=== PATIENT | female | born 1980 | race Caucasian/White ===

== ENCOUNTER → 2020-10-26 | Outpatient (CLI) | payer OTHER ==
[2013-09-29 11:00] VITALS: BP 129/84
[~2020-10-26] MED LIST: BUPR150T15 PO; CETI10CA PO; FERR325C PO; HYDR-2761 PO; NORE-108 PO; PHEN37.599 PO; POLY17PO29 PO; [UNRECOGNIZED DRUG - CODE] PO
[2020-10-26 12:28] LABS: BASO % 0 % (0-3); EOS # 0.4 x10^3/uL (0.0-0.7); EOS % 5 % (0-3); HEMATOCRIT 36.5 % (36.0-47.0); HEMOGLOBIN 12.4 g/dL (12.0-15.5); LYMPH # 2.1 x10^3/uL (1.0-4.8); LYMPH % 27 % (24-48); MEAN CORPUSCULAR HEMOGLOBIN 31 pg (25-35); MEAN CORPUSCULAR HGB CONC 34 g/dL (31-37); MEAN CORPUSCULAR VOLUME 91 fL (79-100); MONO # 0.5 x10^3/uL (0.0-1.1); MONO % 6 % (0-9); NEUT # 4.8 x10^3/uL (1.8-7.7); NEUT % 62 % (31-73); PLATELET COUNT 264 x10^3/uL (140-400); RED BLOOD COUNT 4.04 x10^6/uL (3.50-5.40); RED CELL DISTRIBUTION WIDTH 13.6 % (11.5-14.5); WHITE BLOOD COUNT 7.7 x10^3/uL (4.0-11.0)
== END ==
LOC: SURGPAT 11:50
PROVIDERS: ATTEND Obstetrics & Gynecology
DX: Z01.818 Encounter for other preprocedural examination (principal); N83.291 Other ovarian cyst, right side
CPT/HCPCS: 36415; 85025

== ENCOUNTER 2020-10-31 06:04 | Day surgery (SDC) | payer OTHER ==
[2020-10-26 12:17] VITALS: BP 134/84
[~2020-10-31] VITALS: Ht 157.5 cm; Wt 70.6 kg
[~2020-10-31 06:04] MED LIST changes: -BUPR150T15 PO; -HYDR-2761 PO; +HYDROmorphone 2 MG/ML VIAL IVP PRN; +IV RINGERS,LACTATED 1000ML 1,000 ML IV SCH; +MORPHINE SULFATE 2 MG/ML VIAL. IVP PRN; +PROCHLORPERAZINE 10 MG/2 ML VIAL. IVP PRN; +fentaNYL PF VIAL 100 MCG/2 ML VIAL IVP PRN
[2020-10-31 06:27] VITALS: BP 136/88
[2020-10-31] MEDS ORDERED: BUPR150T15 PO (06:32)
[2020-10-31] MEDS ORDERED: LIDOCAINE 2% PF 5 ML VIAL. ONE (06:51)
[2020-10-31] MEDS ORDERED: fentaNYL PF VIAL 100 MCG/2 ML VIAL ONE ×3 (06:51→09:43)
[2020-10-31] MEDS ORDERED: SUCCINYLCHOLINE 200 MG/10 ML VIAL. ONE (06:51)
[2020-10-31] MEDS ORDERED: PROPOFOL 10 MG/ML (20ML) VIAL. IV ONE (06:51)
[2020-10-31] MEDS ORDERED: ROCURONIUM 50 MG/5 ML VIAL. ONE (06:52)
[2020-10-31] MEDS ORDERED: BUPIVACAINE-EPI 0.25% 30 ML VIAL KIT. ONE (06:54)
[2020-10-31] MEDS ORDERED: METHYLENE BLUE 0.5% 10ml AMPULE. ONE (06:55)
[2020-10-31] MEDS ORDERED: SEVOFLURANE 31 TO 60 MINUTES. IH ONE (07:38)
[2020-10-31] MEDS ORDERED: DEXAMETHASONE SOD PHOS 20 MG/5 ML VIAL. ONE (07:38)
[2020-10-31] MEDS ORDERED: ONDANSETRON PF 4 MG/2 ML VIAL. ONE (07:38)
[2020-10-31] MEDS ORDERED: NEOSTIGMINE METHYLSULFATE 5 MG/5 ML SYRINGE. ONE (07:54)
[2020-10-31] MEDS ORDERED: GLYCOPYRROLATE 1 MG/5 ML VIAL. ONE (07:54)
--- NOTE | 2020-10-31 09:19 | PDOC ---
BRIEF OPERATIVE NOTE Date: Oct 31, 2020 Pre-Op Diagnosis 13+cm right ovarian cyst Post-Op Diagnosis bilateral ovarian cysts Procedure Performed operative laparoscopy with RSO, left ovarian cystectomy Surgeon Dr. Sue Leung Explosive Ordnance Handler PATO Leslie Anesthesiologist Dr. Teague Anesthesia Type: General Blood Loss 10cc IV Fluid 400cc Urine Output 150cc straight cath prior to procedure Specimens Obtained left ovarian cyst wall, Right tube and ovary Findings small 1-2 cm left ovarian cyst, normal uterus, normal bilateral tubes and 13+cm enlarged right ovarian cyst taking up entire cul de sac Complications none Operative Note [id number] SUE LEUNG MD Oct 31, 2020 09:19
[2020-10-31] MEDS: fentaNYL PF VIAL 100 MCG/2 ML VIAL IVP PRN ×4 (09:23→10:00)
[2020-10-31] MEDS ORDERED: CALCIUM CARBONATE 500 MG TAB.CHEW PO PRN (09:30)
[2020-10-31] MEDS ORDERED: 0.9 % SODIUM CHLORIDE 10 ML DISP.SYRIN. IV PRN (09:30)
[2020-10-31] MEDS ORDERED: diphenhydrAMINE HCL 25 MG CAPSULE PO PRN (09:30)
[2020-10-31] MEDS ORDERED: HYDROcodone/APAP 5/325MG 1 TAB TABLET PO PRN (09:30)
[2020-10-31] MEDS ORDERED: diphenhydrAMINE 50 MG/ML VIAL IV PRN (09:30)
[2020-10-31] MEDS ORDERED: MAG HYDROX/ALUMINUM HYD/SIMETH 30 ML ORAL.SUSP PO PRN (09:30)
[2020-10-31] MEDS ORDERED: SIMETHICONE 80 MG TAB.CHEW PO PRN (09:30)
[2020-10-31] MEDS ORDERED: NALOXONE 0.4 MG/ML VIAL. IV PRN (09:30)
[2020-10-31] MEDS ORDERED: HYDR-2761 PO (09:57)
[2020-10-31] MEDS ORDERED: HYDROcodone/APAP 5/325MG 1 TAB TABLET PO ONE (10:00)
--- NOTE | 2020-10-31 10:05 | OP ---
DATE OF SURGERY: 10/31/2020 PREOPERATIVE DIAGNOSIS: A 13 plus cm right ovarian cyst. POSTOPERATIVE DIAGNOSIS: A 13 plus cm right ovarian cyst with a small 1-2 cm cyst on the left as well, so bilateral ovarian cysts. PROCEDURE: Operative laparoscopy with right salpingo-oophorectomy and left ovarian cystectomy. SURGEON: Sue Arreaga MD FURNITURE REPAIRER: PATO Leslie ANESTHESIOLOGIST: Dr. Teague. ANESTHESIA: General. BLOOD LOSS: 10 mL. INTRAVENOUS FLUIDS: 400 mL of crystalloid. URINE OUTPUT: 150 mL of urine, straight cath prior to procedure. SPECIMENS: Left ovarian cyst wall and right tube and ovary. FINDINGS: She had a huge right ovarian complex literally encompassing the entire cul-de-sac with the uterus sitting on it and the left ovary sitting on it and a 1-2 cm cyst on the left ovary, normal uterus, normal bilateral tubes, grossly normal bowel, grossly normal appendix, grossly normal right upper quadrant. COMPLICATIONS: None. DESCRIPTION OF PROCEDURE: This patient was taken to the operating room where general anesthesia was placed. The patient was placed in dorsal lith[facility] The patient's abdomen and vagina were both prepped and draped in a normal sterile fashion and a straight cath urine was done prior to my arrival. Upon my arrival, a timeout was performed. Once everyone agreed on the patient, the site, the procedure, the antibiotics, the procedure was initiated. A bivalve speculum was placed in the patient's vagina. A single-tooth tenaculum was used to grasp the anterior lip of the cervix. The Valtchev uterine manipulator was placed through the endocervical left eye, locked on the single tooth tenaculum and the bivalve speculum was then removed. Top gloves were discarded and changed. Attention was then turned to the abdomen where a small infraumbilical skin incision was made with the scalpel. A curved Cristin was used to dissect through the subcuticular layer of the fascia. The 5 mm Visiport was used to directly enter the abdominal cavity. Opening patient pressure was 2-3 mmHg. Carbon dioxide gas was used to then appropriately insufflate the abdominal cavity to maintain a pressure of 15 mmHg. Marcaine 0.25% with epinephrine was used to inject before making the incision and placing the trocar. At this point right and left lower quadrant ports were going to be placed. There were no adhesions on the anterior abdominal wall, so they were transilluminated, finding an area clear of any vasculature injecting with local, making a small incision and placing the 5 mm atraumatic trocar under direct visualization, 3-4 mL of air was placed in the trocar cuff. The camera was moved laterally to look at the umbilical port and it was also insufflated once it was assured to be in the correct spot. At this point, the left tube and ovary were free. I could see the ureter below it. It was decided that we would go ahead and remove that cyst. It was opened up with the monopolar hook of the LigaSure and the cyst wall was peeled off and passed off and it was good. The right tube was normal and you could see it separate, but the right ovarian complex was huge, much, much larger at least 2-3 times larger than the uterus itself, literally encompassing the entire cul-de-sac; however, I was free, I could get behind it and see the ureter, I could lift it up from the cul-de-sac. I could separate the uterus from it, so even though it was large, it was not adhesed to anything, so I went in initially with the needle to drain it and I got over 60 mL of straw-colored fluid off of it and then it was draining, so I put the suction in it. I got out over 450, suctioning out the fluid plus the 60 we had removed, so well over 500 mL of fluid was taken off the lesion, then it could be lifted up and out of the pelvis again. I opened up the cyst wall sac, drained the rest out. It did look like it might be more complex or dermoid, so I went ahead and decided to take the whole ovary, especially because the cyst wall did not want to peel and there was hardly any normal ovarian tissue left. It essentially replaced the entire ovary as the sonogram had suggested, so the tube and ovary were elevated. The ureter was seen very easily in the pelvis, staying high on the infundibulopelvic ligament, cauterizing and cutting it, crossing it, crossing the right uterine and ovarian pedicle as well and then meeting it until the entire specimen was removed. A 10/12 port was placed in the suprapubic area after injecting that area, making an incision and placing it. The EndoCatch bag was placed down the suprapubic 10/12 port. The right ovarian complex was placed in the bag and it was taken out. It still even drained and opened up, was too large to fit through initially, so I had to extend the incision with the curved Gamez scissors with my finger in there and then it did pull through and remove. Once it was done, I used 0 Vicryl to close off this incision. I grasped the fascia with curved Cristin's on both sides and took it through with a couple of interrupted sutures and [id number]. I put two different sutures and making sure the fascia was closed and it did hold the pneumo. At the end, a 3-0 Vicryl was used to subq this with Steri-Strips and Mastisol, but I did reinsufflate, re-irrigate, made sure everything looked good once that was done and then Lyudmila was placed over it. There was some slight bleeding on the left mesosalpinx where the left tube kept being pulled back to get to the right one and when it was drained, so Lyudmila was placed over this with excellent results in the right IP ligament just to make sure since I had some Lyudmila left it was placed. Everything looked good. All the air, the 4-5 mL of air was taken out of the three trocar cuffs of the umbilical right and left lower quadrants under direct visualization. Once the cul-de-sac was dry and that a lower incision had been closed with 0 Vicryl, held the pneumo and everything. The right and left lower quadrants were taken out under direct visualization. Gas was released from the umbilical port. All three of those were closed with 4-0 nylon at the skin. Again, the lower one was subq'd, the larger one with Mastisol and Steri-Strips. The patient was then awakened from anesthesia and brought to recovery room in stable condition. KLARISSA DR: Jamel TID: [id number]
[2020-10-31 10:15] VITALS: BP 121/75
--- NOTE | 2020-11-02 18:06 | PATHOLOGY ---
[facility] Accession Number: [id number] . 01 Material submitted: . PART A: ovary - RIGHT TUBE AND OVARY PART B: ovary - LEFT OVARIAN CYST WALL. Modifiers: left . 01 Clinical history: . RIGHT OVARIAN CYST REMOVAL AND DRAINAGE OF OVARIAN CYST . 02 Diagnosis: A. Fallopian tube and ovary, right salpingo-oophorectomy: - Mature cystic teratoma. - Few small paratubal cysts. . B. Ovarian tissue, left ovarian cyst wall: - Follicular cyst. . (JPM:fritz; 11/02/2020) [facility] 11/02/2020 1709 Local . 02 Comment: Sections of the right ovary reveal a mature cystic teratoma which focally contains thyroid tissue. There is no evidence of malignancy. (JPM:fritz; 11/02/2020) . 02 Electronically signed: . Guillaume Murguia MD, Pathologist NPI- [id number] . 01 Gross description: . A. The specimen is received in formalin, labeled "Aruna Toscano, right tube and ovary" is a 50 g right salpingectomy-oophorectomy specimen. The 7.5 x 0.6 cm fimbriated segment of fallopian tube is remarkable only for a 0.3 cm transparent paratubal cyst. The 7 x 6 x 4.5 cm disrupted ovary appears to have been previously multi loculated with locules measuring up to 4.2 cm. The lining is focally hemorrhagic and contains linares-yellow sebaceous material. The cyst wall measures up to 2 cm and on sectioning has epithelioid characteristics. Papillary excrescences are not identified. Junior Net Developer sections A1-A4. . B. The specimen is received in formalin, labeled "Aruna Toscano, left ovarian cyst wall" is a 1.5 x 0.6 x 0.3 cm fragment of soft linares-brown tissue without papillary excrescences or actual recognizable ovarian parenchyma. Entirely submitted in B1. ([facility]; 11/01/2020) . CHARITY/CHARITY 11/02/2020 1602 Local . 02 Pathologist provided ICD-10: D27.0, N83.8, N83.02 . 02 CPT . 685181, 469605 Specimen Comment: A courtesy copy of this report has been sent to [phone] Specimen Comment: Report sent to / DR BARNARD Performed at: 01 [facility] [address], [place], [place] [id number] MD Jamil Price MD Phone: [phone] Performed at: 02 [facility] [address], [place] [id number] MD Guillaume Murguia MD Phone: [phone]
== END 2020-10-31 10:45 | disposition home or self-care (01) ==
LOC: SURG 06:04
PROVIDERS: ATTEND Obstetrics & Gynecology
DX: N83.202 Unspecified ovarian cyst, left side (principal); N83.201 Unspecified ovarian cyst, right side; N83.8 Other noninflammatory disorders of ovary, fallopian tube and broad ligament; F41.9 Anxiety disorder, unspecified; F32.9 Major depressive disorder, single episode, unspecified; Z90.49 Acquired absence of other specified parts of digestive tract; Z98.890 Other specified postprocedural states; Z79.899 Other long term (current) drug therapy; Z87.891 Personal history of nicotine dependence
CPT/HCPCS: 58661; 58662; 81025; A4213; A4364; A4930; A6219; J0330; J0690; J1100; J2405; J2704; J2710; J3010; J3490; 88305; 88307; A4351; A4452; Q9968

== ENCOUNTER → 2021-08-23 | Outpatient (CLI) | payer OTHER ==
[~2021-08-23] MED LIST changes: +BIOT1CAP3 PO; +BUPR150T15 PO; +CALC250T PO; +HYDR-2761 PO; -HYDROmorphone 2 MG/ML VIAL IVP PRN; -IV RINGERS,LACTATED 1000ML 1,000 ML IV SCH; -MORPHINE SULFATE 2 MG/ML VIAL. IVP PRN; +MULT-121 PO; -PROCHLORPERAZINE 10 MG/2 ML VIAL. IVP PRN; -fentaNYL PF VIAL 100 MCG/2 ML VIAL IVP PRN
[2021-08-23 13:11] LABS: BASO % 1 % (0-3); EOS # 0.2 x10^3/uL (0.0-0.7); EOS % 3 % (0-3); HEMATOCRIT 38.7 % (36.0-47.0); HEMOGLOBIN 12.8 g/dL (12.0-15.5); LYMPH # 2.1 x10^3/uL (1.0-4.8); LYMPH % 26 % (24-48); MEAN CORPUSCULAR HEMOGLOBIN 31 pg (25-35); MEAN CORPUSCULAR HGB CONC 33 g/dL (31-37); MEAN CORPUSCULAR VOLUME 93 fL (79-100); MONO # 0.6 x10^3/uL (0.0-1.1); MONO % 7 % (0-9); NEUT # 5.3 x10^3/uL (1.8-7.7); NEUT % 63 % (31-73); PLATELET COUNT 309 x10^3/uL (140-400); RED BLOOD COUNT 4.18 x10^6/uL (3.50-5.40); WHITE BLOOD COUNT 8.3 x10^3/uL (4.0-11.0)
[2021-08-23 13:24] LABS: CALCIUM 9.1 mg/dL (8.5-10.1); CREATININE 0.8 mg/dL (0.6-1.0); GFR 79.4
[2021-08-23 13:29] LABS: ALBUMIN 3.8 g/dL (3.4-5.0); TOTAL BILIRUBIN 0.3 mg/dL (0.2-1.0); TOTAL PROTEIN 7.5 g/dL (6.4-8.2)
== END ==
LOC: SURGPAT 11:52
PROVIDERS: ATTEND Obstetrics & Gynecology
DX: Z01.812 Encounter for preprocedural laboratory examination (principal)
CPT/HCPCS: 36415; 80053; 85025

== ENCOUNTER 2021-08-29 05:50 | Observation (INO) | payer OTHER ==
[2021-08-23 12:48] VITALS: BP 140/82
[2021-08-29] VITALS (13 sets, daily range): BP systolic 81–160; BP diastolic 44–84
[~2021-08-29] VITALS: Ht 158.8 cm; Wt 68.2 kg
[2021-08-29] MEDS: IV RINGERS,LACTATED 1000ML 1,000 ML IV SCH (06:28)
[2021-08-29] MEDS ORDERED: fentaNYL PF VIAL 250 MCG/5 ML VIAL ONE (07:00)
[2021-08-29] MEDS ORDERED: ESTROGENS, CONJ VAGINAL CREAM 30GM TUBE. ONE (07:02)
[2021-08-29] MEDS ORDERED: PROPOFOL 10 MG/ML (20ML) VIAL. IV ONE (07:02)
[2021-08-29] MEDS ORDERED: INDIGOTINDISULFONATE SODIUM 40 MG/5 ML AMPUL. ONE (07:02)
[2021-08-29] MEDS ORDERED: BUPIVACAINE-EPI 0.25% 30 ML VIAL KIT. ONE (07:02)
[2021-08-29] MEDS ORDERED: ROCURONIUM 100 MG/10 ML VIAL. ONE (07:03)
[2021-08-29] MEDS ORDERED: GLYCOPYRROLATE 1 MG/5 ML VIAL. ONE (07:07)
[2021-08-29] MEDS ORDERED: ONDANSETRON PF 4 MG/2 ML VIAL. ONE (08:21)
[2021-08-29] MEDS ORDERED: KETOROLAC 30 MG/ML VIAL. ONE (08:21)
[2021-08-29] MEDS ORDERED: SUGAMMADEX SODIUM 200 MG/2 ML VIAL. IVP ONE (08:30)
[2021-08-29] MEDS ORDERED: fentaNYL PF VIAL 100 MCG/2 ML VIAL ONE (09:38)
[2021-08-29] MEDS ORDERED: PROCHLORPERAZINE 10 MG/2 ML VIAL. ONE (09:38)
[2021-08-29] MEDS ORDERED: MAGNESIUM HYDROXIDE 2,400 MG/30 ML ORAL.SUSP. PO PRN (09:45)
[2021-08-29] MEDS ORDERED: diphenhydrAMINE 50 MG/ML VIAL IV PRN (09:45)
[2021-08-29] MEDS ORDERED: HYDROmorphone 2 MG/ML INJ. IVP PRN (09:45)
[2021-08-29] MEDS ORDERED: NALOXONE 0.4 MG/ML VIAL. IV PRN (09:45)
[2021-08-29] MEDS ORDERED: diphenhydrAMINE HCL 25 MG CAPSULE PO PRN (09:45)
[2021-08-29] MEDS ORDERED: PROCHLORPERAZINE 10 MG/2 ML VIAL. IVP PRN (09:45)
[2021-08-29] MEDS ORDERED: fentaNYL PF VIAL 100 MCG/2 ML VIAL IVP PRN ×2 (09:45)
[2021-08-29] MEDS ORDERED: 0.9 % SODIUM CHLORIDE 10 ML DISP.SYRIN. IV PRN (09:45)
[2021-08-29] MEDS ORDERED: CALCIUM CARBONATE 500 MG TAB.CHEW PO PRN (09:45)
[2021-08-29] MEDS ORDERED: LACTULOSE 20 GM/30 ML SOLUTION. PO PRN (09:45)
[2021-08-29] MEDS ORDERED: MAG HYDROX/ALUMINUM HYD/SIMETH 30 ML ORAL.SUSP PO PRN (09:45)
[2021-08-29] MEDS ORDERED: IV RINGERS,LACTATED 1000ML 1,000 ML IV SCH (09:45)
[2021-08-29] MEDS ORDERED: SIMETHICONE 80 MG TAB.CHEW PO PRN (09:45)
[2021-08-29] MEDS ORDERED: ONDANSETRON PF 4 MG/2 ML VIAL. IV PRN (09:45)
[2021-08-29] MEDS ORDERED: ZOLPIDEM 5 MG TABLET. PO PRN (09:45)
[2021-08-29] MEDS ORDERED: HYDROcodone/APAP 5/325MG 1 TAB TABLET PO PRN (09:45)
[2021-08-29] MEDS ORDERED: MORPHINE SULFATE 2 MG/ML INJ. IV PRN (09:45)
[2021-08-29] MEDS ORDERED: MORPHINE SULFATE 2 MG/ML INJ. ONE (09:55)
--- NOTE | 2021-08-29 09:56 | PDOC4 ---
BRIEF OPERATIVE NOTE Date: Aug 29, 2021 Pre-Op Diagnosis L ovarian cyst, pelvic pain, menorrhagia Post-Op Diagnosis same Procedure Performed LAVH/LSO Surgeon Dr. Sue Arreaga Book Solicitor hoa Mcfarland Anesthesiologist Dr. Dugan Anesthesia Type: General Blood Loss 100cc IV Fluid 1300cc Urine Output 250cc clear via issa Specimens Obtained cervix, uterus, left tube and ovary Findings enlarged left ovarian cyst, normal uterus, right tube/ovary already gone, normal appendix, no significant adhesive disease Complications none Operative Note [id number] SUE ARREAGA MD Aug 29, 2021 09:56
[2021-08-29] MEDS ORDERED: SEVOFLURANE > 120 MINUTES. IH ONE (09:59)
[2021-08-29] MEDS: MORPHINE SULFATE 2 MG/ML INJ. IVP PRN ×2 (10:03→10:14)
[2021-08-29] MEDS ORDERED: ESTRADIOL WEEKLY 0.1 MG PATCH. TD ONE (10:30)
--- NOTE | 2021-08-29 11:00 | NUR ---
Pt. arrives to floor at 1057, pt. is alert and oriented but drowsy, on room air, VSS, pt. is currently rating pain at a level 6:10. Pt lap sites were assessed upon admission and found to be CDI with slight shadowing on the 2 closest to her R side. Pt. denies nausea at this time. Pt. vaginal bleeding checked and no bleeding noted. Family of the pt visited shortly with her and brought belongings bag to the bedside. IV fluids were placed on pump and SCD's were restarted. Pt. rests with eyes closed.
--- NOTE | 2021-08-29 11:52 | OP ---
DATE OF SURGERY: 08/29/2021 PREOPERATIVE DIAGNOSES: Left ovarian cyst, pelvic pain and menorrhagia. POSTOPERATIVE DIAGNOSES: Left ovarian cyst, pelvic pain and menorrhagia. PROCEDURE: Laparoscopic-assisted vaginal hysterectomy, left salpingo-oophorectomy. SURGEON: Sue Arreaga MD CHOCOLATIER: PATO Mcfarland ANESTHESIOLOGIST: Dr. Jesse Dugan. ANESTHESIA: General. BLOOD LOSS: 100 mL. URINE OUTPUT: 250 mL clear via Krishnamurthy catheter. INTRAVENOUS FLUIDS: 1300 mL of crystalloid. SPECIMENS: Cervix, uterus, left tube and ovary. FINDINGS: She had an enlarged left ovarian cyst, it actually did have yellow straw colored normal fluid, normal uterus, right tube and ovary already gone, normal appendix. No significant adhesive disease. COMPLICATIONS: None. DESCRIPTION OF PROCEDURE: This patient was taken to the operating room where general anesthesia was placed. The patient was placed in dorsal lithotomy position in Shun stirrups. The patient's abdomen and vagina were prepped and draped in the normal sterile fashion and a Krishnamurthy catheter had been inserted under sterile technique. Upon my arrival, a timeout was performed. Once everyone agreed on the patient, the site, the procedure, the antibiotics, the procedure was initiated. A bivalve speculum was placed in the patient's vagina. A single-tooth tenaculum was used to grasp the anterior lip of the cervix. A 10 mL of 0.25% Marcaine with epinephrine was used to circumferentially inject around the cervix for both hemodissection and hemostatic purposes later. The Valtchev uterine manipulator was placed through the endocervical os, locked on the single tooth tenaculum and the bivalve speculum was then removed. Top gloves were discarded and changed. Attention was then turned to the abdomen where a small supraumbilical skin incision was made over the existing scar. A curved Cristin was used to dissect through the subcuticular layer of the fascia. The 5 mm Visiport was used to directly enter the abdominal cavity. Opening patient's pressure was 8 mmHg. Carbon dioxide gas was used to appropriately insufflate the abdominal cavity to maintain a pressure of 15 mmHg. Overhead lights were dimmed and Trendelenburg position was obtained. At this point, the right upper quadrant was grossly normal. No significant adhesive disease. Normal appendix was observed. Right side completely gone, no right tube and ovary. Left ovary was sitting enlarged in the cul-de-sac that was flipped up and was fluid filled. Upon manipulating it, it did start to drain clearish yellow straw-colored fluid that looked benign in nature. The ureter was seen on the right side, crossing the right round ligament, cauterizing and cutting it, which was the only thing left on the right and then starting on the left round ligament, cauterizing and cutting it and then elevating the left tube and ovary finding the ureter coursing low on the left side, staying high on the infundibulopelvic ligament, cauterizing and cutting it taking the left tube and ovary per patient's request going over and then once we had all that pushing the uterus cephalad and getting the blood supply on the left side, hugging the uterus, after getting the uterine, going down through the cardinal and broad ligaments to the level of the uterosacral. Then on the right side going and getting the vessels on this side as well, the uterus was completely blanched. It was free. There were no adhesions. Staying posteriorly on the right side, hugging posteriorly going through the cardinal and broad, staying inside that uterine pedicle and going down posteriorly few bites. Once this was done and the uterus was blanched, it was decided to remove all abdominal instruments and go vaginally. The single tooth and Valtchev were removed. A weighted speculum was placed in the patient's vagina. Thyroid Joceline clamps were placed on the anterior and posterior lips of the cervix respectively. A scalpel was used to make a circumferential incision. I did stay very, very low because she had a LEEP and the bladder looked like it came down, so I barely went right over that edge using the blunt plastic tip of the suction to gently push it up and peel that bladder off the cervix and then using an open Ray-Neno 4 x 4 to gently slide it up once we were in the right plane and entered the anterior cul-de-sac digitally and bluntly. The 4 x 4 was passed back off and the curved La Fontaine was placed in the anterior cul-de-sac. The cervix was elevated and the posterior cul-de-sac was sharply entered with curved Gamez scissors. A number of 0 Vicryl suture was used to secure the posterior peritoneum to the vaginal cuff. It was tagged with a straight Cristin clamp and the needle was cut and passed off. At this point, the short weighted vaginal speculum was removed and replaced with the long weighted Sean speculum in the posterior cul-de-sac. Curved Rojelio clamps x 2 were placed on the patient's left uterosacral ligament where they were doubly clamped with curved Heaneys, cut with curved Gamez scissors and suture ligated x 2 with 0 Vicryl. Second one was taken through the vaginal cuff, securing uterosacral ligament to the vaginal cuff, tagging it with a straight Cristin clamp and cutting and passing the needle off. This was done exactly the same on the patient's right side, double clamping the uterosacrals with curved Rojelio's, cutting with curved Gamez scissors, suture ligating x 2 with 0 Vicryl, taking the second one through the vaginal cuff, securing uterosacral ligament to the vaginal cuff, tagging it with a straight Cristin clamp and cutting and passing the needle off. The remaining pedicles on both sides were delineated with the curved mixture and the vaginal LigaSure was used to cauterize and cut the remaining pedicles on both sides. Cervix, uterus, left tube and ovary were delivered in total and passed off for permanent pathology. A sponge stick was used to examine the pedicles. There was some slight oozing from the right side, was grasped with a burlisher, going behind it with the vaginal LigaSure, cauterizing with excellent results. It did appear to be hemostatic at this point using the sponge stick to examine the pedicles. So the long Allis was used to grasp the anterior bladder peritoneum and the long Sean speculum was removed and replaced with the short weighted vaginal speculum again. Full length 2-0 Vicryl was used to close the peritoneum in a pursestring like fashion, going through the anterior bladder peritoneum, left uterosacral ligament, posterior peritoneum and right uterosacral ligament, thus closing the peritoneum in a pursestring like fashion. Once this was done, the right and left uterosacral tags were clipped and another full length 2-0 Vicryl was used to close the cuff in an anterior to posterior running locked fashion. It was tied to the posterior cuff tag. Once this was done, the cuff was examined that was found to be hemostatic with a sponge stick, so all instruments were removed. While we were closing the cuff, all vaginal instruments were correct x 2 by OR personnel in initial counts, so all gloves were discarded and changed and attention was turned back above. The patient was placed back in Trendelenburg. Gas was reinsufflated. Copious irrigation, there was some slight oozing from the upper left side of the incision. I used Tisseel with excellent results. Just to be sure, I irrigated again after it had dried and placed Lyudmila and watched it and it stayed white and powdery with no welling up whatsoever at all. The right and left pericolic gutters were clear. Lyudmila remained powdery. Once we were in and she was put in Trendelenburg, right and left lower quadrant ports were placed over the existing scars, transilluminating the abdominal wall, finding an area clear of any vasculature, injecting with local and placing the trocars in, 4-5 mL of air went in these. I did move the camera laterally to look at the umbilical one and it was insufflated. So, now at the end, all 3 were deflated and left in and reexamining the cuff a third time and it remained white and powdery with Lyudmila, so the right and left lower quadrant ports were removed under direct visualization. They remained hemostatic and even with the air going down and watching the pressure go down, there was no bleeding at all in the cuff. So, the camera was removed. The gas was released through that supraumbilical port. Once that was done, it was removed. All 3 port sites were closed with 4-0 nylon at the skin. The patient was awakened from anesthesia. Catheter was removed and she was brought to recovery room in stable condition. FILOMENA/ELIO DR: Jamel TID: [id number]
[2021-08-29] MEDS: oxyCODONE/APAP 5/325 1 TAB TABLET PO PRN (21:08)
[2021-08-30] VITALS: BP 89/65
[2021-08-30] MEDS: oxyCODONE/APAP 5/325 1 TAB TABLET PO PRN ×2 (01:54→07:51)
[2021-08-30 02:00] VITALS: BP 81/53
[2021-08-30] MEDS: IV RINGERS,LACTATED 1000ML 1,000 ML IV SCH (03:10)
[2021-08-30 06:00] VITALS: BP 105/64
[2021-08-30 07:38] LABS: HEMATOCRIT 33.6 % (36.0-47.0); HEMOGLOBIN 11.1 g/dL (12.0-15.5); RED BLOOD COUNT 3.62 x10^6/uL (3.50-5.40); RED CELL DISTRIBUTION WIDTH 14.3 % (11.5-14.5); WHITE BLOOD COUNT 9.6 x10^3/uL (4.0-11.0)
[2021-08-30 08:03] LABS: CALCIUM 7.9 mg/dL (8.5-10.1); CREATININE 0.7 mg/dL (0.6-1.0); GFR 92.7; POTASSIUM 3.9 mmol/L (3.5-5.1)
--- NOTE | 2021-08-30 08:46 | PDOC ---
SURGICAL PROGRESS NOTE DATE: 08/30/21 TIME: 08:40 Subjective Doing well without complaints. Scant VB, tolerating PO meds, tolerating regular diet, ambulating ok and voiding without catheter. Vital Signs Vital Signs Date Time Temp Pulse Resp B/P (MAP) Pulse Ox O2 Delivery O2 Flow Rate FiO2 08/30/21 07:51 18 08/30/21 07:50 Room Air 08/30/21 06:00 98.7 67 105/64 (78) 98.7 08/30/21 00:00 99 08/29/21 10:17 10.0 I&O Intake and Output 08/30/21 07:00 Intake Total 2350 ml Output Total 350 ml Balance 2000 ml Intake IV Total 2350 ml Output Urine Total 250 ml Estimated Blood Loss 100 ml # Voids 2 PATIENT HAS A INIGUEZ: No General: Alert, Oriented X3, Cooperative, No acute distress HEENT: Atraumatic Heart: Regular rate Abdomen: Soft, No tenderness, No masses, Other (port sites c/d/i) Extremities: No clubbing, No cyanosis, No edema Skin: No rashes, No breakdown Neuro: Normal speech Psych/Mental Status: Mental status NL, Mood NL Labs Laboratory Tests Test 08/29/21 06:07 08/29/21 06:10 08/30/21 06:50 Bedside Urine HCG, Qualitative Hcg negative (Negative) POC SARS CoV-2 Antigen Negative (NEGATIVE) White Blood Count 9.6 x10^3/uL (4.0-11.0) Red Blood Count 3.62 x10^6/uL (3.50-5.40) Hemoglobin 11.1 g/dL (12.0-15.5) Hematocrit 33.6 % (36.0-47.0) Mean Corpuscular Volume 93 fL (79-100) Mean Corpuscular Hemoglobin 31 pg (25-35) Mean Corpuscular Hemoglobin Concent 33 g/dL (31-37) Red Cell Distribution Width 14.3 % (11.5-14.5) Platelet Count 221 x10^3/uL (140-400) Sodium Level 142 mmol/L (136-145) Potassium Level 3.9 mmol/L (3.5-5.1) Chloride Level 108 mmol/L (98-107) Carbon Dioxide Level 26 mmol/L (21-32) Anion Gap 8 (6-14) Blood Urea Nitrogen 8 mg/dL (7-20) Creatinine 0.7 mg/dL (0.6-1.0) Estimated GFR (Cockcroft-Gault) 92.7 Glucose Level 79 mg/dL (70-99) Calcium Level 7.9 mg/dL (8.5-10.1) Laboratory Tests Test 08/30/21 06:50 White Blood Count 9.6 x10^3/uL (4.0-11.0) Red Blood Count 3.62 x10^6/uL (3.50-5.40) Hemoglobin 11.1 g/dL (12.0-15.5) Hematocrit 33.6 % (36.0-47.0) Mean Corpuscular Volume 93 fL (79-100) Mean Corpuscular Hemoglobin 31 pg (25-35) Mean Corpuscular Hemoglobin Concent 33 g/dL (31-37) Red Cell Distribution Width 14.3 % (11.5-14.5) Platelet Count 221 x10^3/uL (140-400) Sodium Level 142 mmol/L (136-145) Potassium Level 3.9 mmol/L (3.5-5.1) Chloride Level 108 mmol/L (98-107) Carbon Dioxide Level 26 mmol/L (21-32) Anion Gap 8 (6-14) Blood Urea Nitrogen 8 mg/dL (7-20) Creatinine 0.7 mg/dL (0.6-1.0) Estimated GFR (Cockcroft-Gault) 92.7 Glucose Level 79 mg/dL (70-99) Calcium Level 7.9 mg/dL (8.5-10.1) I have reviewed the following labs, vitals, nursing Cardiovascular: No pertinent hx Pulmonary: No pertinent hx GI: No pertinent hx Heme/Onc: No pertinent hx Rheumatologic: No pertinent hx Infectious disease: No pertinent hx ENT: No pertinent hx Renal/: No pertinent hx Endocrine: No pertinent hx Dermatology: No pertinent hx Assessment/Plan POD#1 s/p LAVH/LSO Routine PO care d/c to home NPV x 6 weeks light/limited x 2 weeks keep scheduled follow up already has pain meds ok to alternate OTC ibuprofen as needed if no contraindication NO driving x 1 week or while on pain meds call or return sooner for any other questions or concerns not limited to but including pain unrelieved with pain meds, increased or unexplained vb or T>100.4 Justicifation of Admission Dx: Justifications for Admission: Justification of Admission Dx: Yes MALINI LEUNG MD Aug 30, 2021 08:46
--- NOTE | 2021-08-30 08:48 | PDOC3 ---
Discharge Summary Visit Information Date of Admission: Aug 29, 2021 Date of Discharge: Aug 30, 2021 Final Diagnosis pelvic pain, ovarian cyst Brief Hospital Course Allergies Allergies Coded Allergies Type Severity Reaction Last Updated Verified No Known Drug Allergies 08/29/21 No Vital Signs Vital Signs Date Time Temp Pulse Resp B/P (MAP) Pulse Ox O2 Delivery O2 Flow Rate FiO2 08/30/21 07:51 18 08/30/21 07:50 Room Air 08/30/21 06:00 98.7 67 105/64 (78) 98.7 08/30/21 00:00 99 08/29/21 10:17 10.0 Lab Results Laboratory Tests Test 08/29/21 06:07 08/29/21 06:10 08/30/21 06:50 Bedside Urine HCG, Qualitative Hcg negative (Negative) POC SARS CoV-2 Antigen Negative (NEGATIVE) White Blood Count 9.6 x10^3/uL (4.0-11.0) Red Blood Count 3.62 x10^6/uL (3.50-5.40) Hemoglobin 11.1 g/dL (12.0-15.5) Hematocrit 33.6 % (36.0-47.0) Mean Corpuscular Volume 93 fL (79-100) Mean Corpuscular Hemoglobin 31 pg (25-35) Mean Corpuscular Hemoglobin Concent 33 g/dL (31-37) Red Cell Distribution Width 14.3 % (11.5-14.5) Platelet Count 221 x10^3/uL (140-400) Sodium Level 142 mmol/L (136-145) Potassium Level 3.9 mmol/L (3.5-5.1) Chloride Level 108 mmol/L (98-107) Carbon Dioxide Level 26 mmol/L (21-32) Anion Gap 8 (6-14) Blood Urea Nitrogen 8 mg/dL (7-20) Creatinine 0.7 mg/dL (0.6-1.0) Estimated GFR (Cockcroft-Gault) 92.7 Glucose Level 79 mg/dL (70-99) Calcium Level 7.9 mg/dL (8.5-10.1) Laboratory Tests Test 08/30/21 06:50 White Blood Count 9.6 x10^3/uL (4.0-11.0) Red Blood Count 3.62 x10^6/uL (3.50-5.40) Hemoglobin 11.1 g/dL (12.0-15.5) Hematocrit 33.6 % (36.0-47.0) Mean Corpuscular Volume 93 fL (79-100) Mean Corpuscular Hemoglobin 31 pg (25-35) Mean Corpuscular Hemoglobin Concent 33 g/dL (31-37) Red Cell Distribution Width 14.3 % (11.5-14.5) Platelet Count 221 x10^3/uL (140-400) Sodium Level 142 mmol/L (136-145) Potassium Level 3.9 mmol/L (3.5-5.1) Chloride Level 108 mmol/L (98-107) Carbon Dioxide Level 26 mmol/L (21-32) Anion Gap 8 (6-14) Blood Urea Nitrogen 8 mg/dL (7-20) Creatinine 0.7 mg/dL (0.6-1.0) Estimated GFR (Cockcroft-Gault) 92.7 Glucose Level 79 mg/dL (70-99) Calcium Level 7.9 mg/dL (8.5-10.1) Brief Hospital Course Ms. Toscano is a 40 old female who presented with pelvic pain and ovarian cyst. Desired definitive therapy. Underwent LAVH/LSO (prior RSO for ovarian mass also) without complications. She is voiding without catheter. Tolerating regular diet, po meds, etc. Desiring to go home. Assessment Assessment POD#1 s/p LAVH/LSO Routine PO care d/c to home NPV x 6 weeks light/limited x 2 weeks keep scheduled follow up already has pain meds ok to alternate OTC ibuprofen as needed if no contraindication NO driving x 1 week or while on pain meds call or return sooner for any other questions or concerns not limited to but including pain unrelieved with pain meds, increased or unexplained vb or T>100.4 Discharge Information Condition at Discharge: Improved Follow Up: Weeks Disposition/Orders: D/C to Home Scheduled Biotin (Biotin) 1 Mg Capsule, 1 MG PO BID for SUPPLEMENT, (Reported) Entered as Reported by: VINCENZO VIEIRA on 08/26/21 7106 Last Taken: Unknown Dose on 08/23/21 Last Action: Reviewed on 08/29/21 0621 by RUI DAVIDSON Bupropion Hcl (Wellbutrin Xl) 150 Mg Tab.er.24h, 150 MG PO DAILY for DEPRESSION, (Reported) Entered as Reported by: VICKI HERNANDEZ on 10/31/20 0632 Last Taken: Unknown Dose on 08/28/21 Last Action: Reviewed on 08/29/21620 by RUI DAVIDSON Calcium Citrate (Calcium Citrate) 250 Mg Tablet, 250 MG PO TID for SUPPLEMENT, (Reported) Entered as Reported by: VINCENZO VIEIRA on 08/26/21 1434 Last Taken: Unknown Dose on 08/28/21 Last Action: Reviewed on 08/29/21620 by RUI DAVIDSON Cetirizine Hcl (Zyrtec) 10 Mg Capsule, 10 MG PO HS, (Reported) Entered as Reported by: ALANA KWONG on 09/20/13 1413 Last Taken: Unknown Dose on 08/28/21 Last Action: Reviewed on 08/29/21620 by RUI DAVIDSON Multivitamin (Multiple Vitamins) 1 Each Tablet, 1 EACH PO DAILY for SUPPLEMENT, (Reported) Entered as Reported by: VINCENZO VIEIRA on 08/26/214 Last Taken: Unknown Dose on 08/23/21 Last Action: Reviewed on 08/29/21620 by RUI DAVIDSON Discontinued Medications Hydrocodone Bit/Acetaminophen (Hydrocodone-Apap 5-325 ) 1 Tab Tablet, 1 TAB PO PRN Q4-6HRS PRN for PAIN, #20 Ref 0 (Reported) Entered as Reported by: KARINA SCHAFFER, RN on 10/31/20 0957 Patient Instructions Patient Instructions POD#1 s/p LAVH/LSO Routine PO care d/c to home NPV x 6 weeks light/limited x 2 weeks keep scheduled follow up already has pain meds ok to alternate OTC ibuprofen as needed if no contraindication NO driving x 1 week or while on pain meds call or return sooner for any other questions or concerns not limited to but including pain unrelieved with pain meds, increased or unexplained vb or T>100.4 Justicifation of Admission Dx: Justifications for Admission: Justification of Admission Dx: Yes MALINI LEUNG MD Aug 30, 2021 08:48
[2021-08-30] MEDS ORDERED: ceFAZolin SODIUM IV Push 1 GM VIAL. IVP SCH (09:15)
--- NOTE | 2021-08-30 09:40 | NUR ---
Dismissal instructions given and signed.
[2021-08-30 09:45] VITALS: BP 96/63
--- NOTE | 2021-08-30 10:25 | NUR ---
Discharged per w/c VSS
--- NOTE | 2021-09-04 18:31 | PATHOLOGY ---
[facility] Accession Number: [id number] . 01 Material submitted: . uterus - UTERUS, CERVIX, L OVARY, FALLOPIAN TUBE . 02 Diagnosis: Uterus and attached left fallopian tube and ovary, laparoscopic assisted vaginal hysterectomy with left salpingo-oophorectomy: - Adenomyosis, uterine corpus, focal. - Presence of intrauterine device within endometrial cavity. - Chronic endometritis. - Intramural leiomyoma, uterine corpus. - Congestion and focal cystic [place] rests of left fallopian tube. - Follicular cyst and few small cystic follicles of left ovary. (JPM:gina; 09/04/2021) [facility] 09/04/2021 0945 Local . 02 Comment: There is no evidence of malignancy. (ENRICOM:gina; 09/04/2021) . 02 Electronically signed: . Guillaume Murguia MD, Pathologist NPI- [id number] . 01 Gross description: . Fixative: Formalin Labeled: uterus, cervix, L ovary, fallopian tube Specimen received: An intact uterus with cervix, left fallopian tube and left ovary. The right fallopian tube and ovary are not received. Uterus weight: 85 g Uterus: 8.6 cm fundus to cervix, 4.5 cm cornua to cornua, 4.0 cm anterior to posterior Serosa: Garcia-pink, smooth and focally hemorrhagic Cervix: 3.7 x 3.6 cm Cervical os: Central, slitlike and patent, measuring 1.2 cm in diameter. Completely surrounding the os is a garcia-brown, eruthematous mucosa. The anterior lower uterine neck is inked blue and the posterior lower uterine neck is inked black. . Endocervical canal: 4.0 cm in length by 0.9-1.6 cm in diameter Endometrial cavity: 3.1 x 2.4 cm and contains a garcia-white, intact, T-shaped IUD (3.3 x 3.2 x 0.3 cm) with an attached string (5.9 cm in length by less than 0.1 cm in diameter). No inscriptions are identified. Endometrium: Garcia and slightly granular Endometrial thickness: 0.1 cm Myometrium: Garcia-pink and trabecular Myometrium thickness: Up to 2.1 cm Lesions/abnormalities: The posterior myometrium displays a gacria-white, well-circumscribed, intramural nodule (0.4 x 0.3 x 0.2 cm) with garcia whorled cut surfaces without areas of hemorrhage, calcification, cystic degeneration or necrosis. . Left fallopian tube: Is consistent with having been previously ligated, fimbriated; 5.0 cm in length by 0.3 cm - 0.8 cm in diameter Left fallopian tube cut surface: unremarkable with a pinpoint and stellate lumen Left ovary: 28 g, 5.4 x 4.1 x 3.0 cm Left ovarian cut surface: displays multiple garcia, clear, fluid-filled, smooth walled cysts (ranging from 0.4 cm to 3.8 in diameter). No papillary growths or areas of thickening are identified. . Photographs are taken. Captain Room Service sections are submitted as follows: A1: Anterior cervix A2: Posterior cervix A3: Anterior endometrium to serosa A4: Posterior endometrium to serosa to include intramural nodule, entirely submitted A5: Serosal shavings A6: Right fallopian tube to include fimbria A7-A8: Right ovary ([facility]; 09/02/2021) DKA/DKA 09/04/2021 [facility] Local . 02 Pathologist provided ICD-10: N80.0, D25.1, N83.02, N71.1 . 02 CPT . 465773 Specimen Comment: A courtesy copy of this report has been sent to [phone], [phone] Specimen Comment: [id number] Specimen Comment: Report sent to / DR RUIZ Performed at: [address], [place], [place] [id number] MD Jamil Price MD Phone: [phone] Performed at: [address] [facility] [place] [id number] MD Guillaume Murguia MD Phone: [phone]
== END 2021-08-30 10:25 | disposition home or self-care (01) ==
LOC: SURG 05:50 → 3 SO LND 09:43
PROVIDERS: ADMIT Obstetrics & Gynecology; ATTEND Obstetrics & Gynecology
DX: N92.0 Excessive and frequent menstruation with regular cycle (principal); Z20.822 Contact with and (suspected) exposure to COVID-19; N83.202 Unspecified ovarian cyst, left side; R10.2 Pelvic and perineal pain
CPT/HCPCS: 36415; 58552; 80048; 81025; 85027; 86850; 86900; 86901; 96374; A4213; A4314; A4930; G0378; G0379; J0690; J0780; J1885; J2270; J2704; J3010; J3480; J3490; J7120; 88307; A4657; J2405